=== PATIENT | female | born 1985 | race Two or more races ===

== ENCOUNTER 2023-11-04 09:49 | Outpatient (CLI) | payer OTHER ==
[2023-11-04 11:12] LABS: HEMATOCRIT 36.8 % (36.0-45.00); HEMOGLOBIN 12.5 g/dL (12.0-15.00); MEAN CELL VOLUME 91.5 fL (80.00-100.00); MEAN CORPUSCULAR HEMOGLOBIN 30.9 pg (27.00-32.0); MEAN CORPUSCULAR HGB CONC 33.8 g/dl (32.0-36.0); PLATELET COUNT 389 K/uL (150-450); RED BLOOD COUNT 4.03 M/uL (4.00-6.00); RED CELL DISTRIBUTION WIDTH 13.7 % (11.5-14.5)
[2023-11-04 11:17] LABS: URINE APPEARANCE Clear; URINE BILIRRUBIN Negative (NEGATIVE); URINE BLOOD Negative; URINE COLOR Yellow; URINE GLUCOSE Negative (NEGATIVE); URINE LEUKOCYTE Negative; URINE NITRATE Negative; URINE PROTEIN Negative (NEGATIVE); URINE UROBILINOGEN 0.2 E.U./dl
[2023-11-04 11:21] LABS: URINE BACTERIA 628.6 uL (0.0-1933); URINE EPITHELIAL CELLS 5.5 uL (0.0-38.8); URINE RBC 23.5 uL (0.0-20.8); URINE WBC 7.1 uL (0.0-23.2)
[2023-11-04 11:55] LABS: CALCIUM 10.6 mg/dL (8.5-10.1); CREATININE SERUM 0.59 mg/dL (0.55-1.02); GFR 114.07; POTASSIUM 4.95 mEq/L (3.5-5.1)
[2023-11-04 12:49] LABS: INR 1.04; PARTIAL THROMBOPLASTIN TIME 35.5 SECONDS (22.0-34.0); PROTHROMBIN TIME 10.9 SECONDS (9.0-11.5)
[2023-11-06] MEDS ORDERED: LEVO-T50 MCG (15:07)
[2023-11-06] MEDS ORDERED: METFORMIN HCL500 M3 (15:07)
[2023-11-06] MEDS ORDERED: COZAAR50 MG (15:07)
== END 2023-11-04 10:13 | disposition home or self-care (01) ==
LOC: LAB 09:49
PROVIDERS: ATTEND Surgery
DX: K80.20 Calculus of gallbladder without cholecystitis without obstruction (principal); Z01.818 Encounter for other preprocedural examination; Z20.828 Contact with and (suspected) exposure to other viral communicable diseases

== ENCOUNTER 2023-11-08 05:49 | Day surgery (SDC) | payer OTHER ==
[~2023-11-08 05:49] MED LIST: COZAAR50 MG; LEVO-T50 MCG; METFORMIN HCL500 M3
[2023-11-08] MEDS ORDERED: PERCOCET 5-3251 EACH PO (12:38)
[2023-11-08] MEDS ORDERED: NEURONTIN300 MG PO (12:38)
== END 2023-11-08 16:05 | disposition home or self-care (01) ==
LOC: CIR.AMB 05:49
PROVIDERS: ATTEND Surgery
DX: K80.10 Calculus of gallbladder with chronic cholecystitis without obstruction (principal)